=== PATIENT | female | born 2000 | race Caucasian/White ===

== ENCOUNTER 2021-08-09 20:40 | Emergency (ER) | payer OTHER ==
[~2021-08-09] VITALS: Ht 157.5 cm; Wt 49.9 kg
[2021-08-09 21:48] VITALS: BP_SYST 139
--- NOTE | 2021-08-10 00:31 | NUR ---
ER in triage examining patient.
[2021-08-10] MEDS ORDERED: ONDA4TAB5 PO (00:55)
[2021-08-10 01:13] VITALS: BP_SYST 135
--- NOTE | 2021-08-10 01:13 | NUR ---
Patient given written and verbal discharge instructions and verbalizes understanding. ER MD discussed with patient the results and treatment provided. Patient in stable condition. ID arm band removed. Rx of Zofran 4 mg sent to pharmacy of choice. Patient educated on pain management and to follow up with PMD. Pain Scale. Opportunity for questions provided and answered.
== END 2021-08-10 01:13 | disposition home or self-care (01) ==
LOC: SED 20:40
DX: S06.0X0A Concussion without loss of consciousness, initial encounter (principal); W01.198A Fall on same level from slipping, tripping and stumbling with subsequent striking against other object, initial encounter; Y93.89 Activity, other specified; Y92.89 Other specified places as the place of occurrence of the external cause; Y99.8 Other external cause status
CPT/HCPCS: 70450-TC; 76376; 81025; 99284